=== PATIENT | male | born 1970 | race Caucasian/White ===

== ENCOUNTER 2021-01-15 08:48 | Emergency (ER) | payer MEDICARE, OTHER ==
[~2021-01-15] VITALS: Ht 188 cm; Wt 92.1 kg
[~2021-01-15 08:48] MED LIST: COLACE100 MG PO; ISENTRESS400 MG PO; LIPITOR20 MG PO; NORVIR100 M1 PO; PHENERGAN25 MG/1 M1 PO; REYATAZ300 MG PO; SEPTRA DS TABL1 EACH PO; SINGULAIR10 MG PO; TRAMADOL HCL50 MG PO; ULTRACET TABLE1 EACH PO; ZIAGEN300 MG PO
--- OUTSIDE RECORDS SUMMARY | 2021-01-15 08:50 | XMS ---
PreManage Notification: ROMANA ARTHUR Security Music Composer Events No recent Security Events currently on file CRITERIA MET - [facility] - 2 Visits in 30 Days CARE PROVIDERS GILLIAN PICHARDO Nurse Practitioner: 10/03/2005-Current PHONE: Unknown Idania Olivo Data Analyst Etl Developer/Motor Mechanic 01/01/2021-Current PHONE: [phone] SUZANNE ESCOBAR Data Analyst Etl Developer/Motor Mechanic Current PHONE: [phone] Bibi has no Care Guidelines for this patient. E.D. VISIT COUNT ([address] [facility] 1 [facility] TOTAL 2 NOTE: Visits indicate total known visits. ED/UCC VISIT TRACKING (12 MO.) 01/15/2021 08:49 [facility] [place] TYPE: Emergency COMPLAINT: - LEFT LEG SKIN PROBLEM 12/17/2020 17:51 [facility] TYPE: Emergency COMPLAINT: - fever / lower back pain / DO NOT USE DIAGNOSES: - fever / lower back pain - fever / lower back pain / DO NOT USE INPATIENT VISIT TRACKING (12 MO.) No inpatient visits to display in this time frame [email or web address]
[2021-01-15] MEDS ORDERED: LIPITOR10 MG PO (09:08)
[2021-01-15] MEDS ORDERED: BACTRIM DS TAB1 EACH PO (09:43)
== END 2021-01-15 09:52 | disposition home or self-care (01) ==
LOC: ED 08:48
DX: L02.416 Cutaneous abscess of left lower limb (principal); Z88.5 Allergy status to narcotic agent; Z88.8 Allergy status to other drugs, medicaments and biological substances; Z88.0 Allergy status to penicillin; Z79.899 Other long term (current) drug therapy
CPT/HCPCS: 10060; 99283-25

== ENCOUNTER 2021-03-16 15:25 | Emergency (ER) | payer MEDICARE, OTHER ==
[~2021-03-16] VITALS: Ht 188 cm; Wt 92.1 kg
[~2021-03-16 15:25] MED LIST changes: +BACTRIM DS TAB1 EACH PO; +LIPITOR10 MG PO
[2021-03-16] MEDS ORDERED: ISENTRESS400 MG PO (16:39)
[2021-03-16] MEDS ORDERED: PREDNISONE20 MG PO (19:57)
[2021-03-17] MEDS ORDERED: DICLOFENAC SODI75 MG PO (21:55)
== END 2021-03-16 20:05 | disposition home or self-care (01) ==
LOC: ED 15:25
DX: M54.12 Radiculopathy, cervical region (principal); B20 Human immunodeficiency virus [HIV] disease; Z88.5 Allergy status to narcotic agent; Z88.8 Allergy status to other drugs, medicaments and biological substances; Z88.0 Allergy status to penicillin; Z79.899 Other long term (current) drug therapy
CPT/HCPCS: 80048; 83735; 85025; 85379; 99283; J1100

== ENCOUNTER 2021-03-17 20:13 | Emergency (ER) | payer MEDICARE, OTHER ==
[~2021-03-17] VITALS: Ht 188 cm; Wt 92.1 kg
[~2021-03-17 20:13] MED LIST changes: +PREDNISONE20 MG PO
--- OUTSIDE RECORDS SUMMARY | 2021-03-17 20:16 | XMS ---
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 Fannie VISIT COUNT ([address] [facility] 3 [facility] Khan TOTAL 4 NOTE: Visits indicate total known visits. ED/UCC VISIT TRACKING (12 MO.) 03/17/2021 20:14 [facility] [place] TYPE: Emergency COMPLAINT: - MED REACTION 03/16/2021 15:26 [facility] TYPE: Emergency COMPLAINT: - R SHOULDER PAIN 01/15/2021 08:49 [facility] TYPE: Emergency COMPLAINT: - LEFT LEG SKIN PROBLEM DIAGNOSES: - Allergy status to other drugs, medicaments and biological substances - Allergy status to narcotic agent - Other local intermodal truck driver (current) drug therapy - Allergy status to penicillin - Cutaneous abscess of left lower limb 12/17/2020 17:51 [facility] TYPE: Emergency COMPLAINT: - fever / lower back pain / DO NOT USE DIAGNOSES: - fever / lower back pain - fever / lower back pain / DO NOT USE INPATIENT VISIT TRACKING (12 MO.) No inpatient visits to display in this time frame [email or web address]
[2021-03-17] MEDS ORDERED: DICLOFENAC SODI75 MG PO (21:55)
== END 2021-03-17 22:13 | disposition home or self-care (01) ==
LOC: ED 20:13
DX: R42 Dizziness and giddiness (principal); R11.0 Nausea; R06.6 Hiccough; T38.0X5A Adverse effect of glucocorticoids and synthetic analogues, initial encounter; M25.511 Pain in right shoulder; B20 Human immunodeficiency virus [HIV] disease; Z88.5 Allergy status to narcotic agent; Z88.8 Allergy status to other drugs, medicaments and biological substances; Z88.0 Allergy status to penicillin; Z79.899 Other long term (current) drug therapy; Z79.52 Long term (current) use of systemic steroids
CPT/HCPCS: 99283

== ENCOUNTER 2021-06-10 20:09 | Emergency (ER) | payer MEDICARE, OTHER ==
[~2021-06-10] VITALS: Ht 188 cm; Wt 94.3 kg
[~2021-06-10 20:09] MED LIST changes: +DICLOFENAC SODI75 MG PO
== END 2021-06-11 05:06 | disposition short-term general hospital (02) ==
LOC: ED 20:09
DX: K80.50 Calculus of bile duct without cholangitis or cholecystitis without obstruction (principal); B20 Human immunodeficiency virus [HIV] disease; Z88.5 Allergy status to narcotic agent; Z88.8 Allergy status to other drugs, medicaments and biological substances; Z88.0 Allergy status to penicillin; Z79.899 Other long term (current) drug therapy; Z20.822 Contact with and (suspected) exposure to COVID-19
CPT/HCPCS: 74177; 80053; 81001; 83690; 85025; 99285-25; C9803; J2405; J3480; J7030; Q9967; U0003

== ENCOUNTER 2025-05-07 19:18 | Emergency (ER) | payer MEDICARE, OTHER ==
[~2025-05-07] VITALS: Ht 188 cm; Wt 91.2 kg
[~2025-05-07 19:18] MED LIST changes: -LIPITOR20 MG PO
[2025-05-07] MEDS ORDERED: ondansetron HCL 4 MG/2 ML VIAL IV ONE (19:45)
[2025-05-07] MEDS ORDERED: KETOROLAC TROMETHAMINE 30 MG/ML VIAL IV ONE (19:45)
[2025-05-07] MEDS ORDERED: SODIUM CHLORIDE 0.9% 1,000 ML IV ONE (19:45)
[2025-05-07 20:00] LABS: BASOPHILS 0.2 % (0.2-1.2); EOSINOPHILS 1.2 % (0.8-7.0); HEMATOCRIT 51.3 % (40.1-51.0); LYMPHOCYTES 5.1 % (21.8-53.1); MCH 31.4 PG (25.7-32.2); MCHC 35.1 g/dL (32.3-36.5); MCV 89.5 fL (79.0-92.2); MONOCYTES 6.7 % (5.3-12.2); NEUTROPHILS 86.2 % (34.0-67.9); PLATELET COUNT 209 K/uL (163-337); RBC 5.73 M/uL (4.63-6.08)
[2025-05-07 20:16] LABS: ALBUMIN 3.4 g/dL (3.4-5.0); ALBUMIN/GLOBULIN RATIO 0.87 (1.1-2.4); ANION GAP 16.8 (7-21); BILIRUBIN, TOTAL 2.7 mg/dL (0.2-1.0); BUN/CREATININE RATIO 31.37 (6.0-28.6); CALCIUM 8.6 mg/dL (8.5-10.1); CREATININE, SERUM 1.02 mg/dL (0.70-1.30); MAGNESIUM 1.9 mg/dL (1.8-2.4); POTASSIUM 3.8 mmol/L (3.5-5.1); PROTEIN, TOTAL 7.3 g/dL (6.4-8.2)
[2025-05-07] MEDS ORDERED: MORPHINE SULFATE 4 MG/ML VIAL IV ONE (21:15)
[2025-05-07 21:34] LABS: BILIRUBIN, URINE NEGATIVE (negative); BLOOD/HGB, URINE NEGATIVE (Negative); KETONE, URINE NEGATIVE (Negative); LEUK ESTERASE, URINE NEGATIVE (negative); NITRITE, URINE NEGATIVE (negative); PH, URINE 5.5 (5-7)
[2025-05-07] MEDS ORDERED: CYCLOBENZAPRINE10 MG PO (22:19)
[2025-05-07] MEDS ORDERED: ONDANSETRON ODT8 MG PO (22:19)
[2025-05-07] MEDS ORDERED: PROMETHAZINE HC25 M1 PO (22:19)
[2025-05-07] MEDS ORDERED: ONDANSETRON 4 MG HOME.PACK SL ONE (22:30)
[2025-05-07] MEDS ORDERED: PROMETHAZINE HCL 25 MG HOME.PACK PO ONE (22:30)
[2025-05-07] MEDS ORDERED: CYCLOBENZAPRINE HCL 10 MG HOME.PACK PO ONE (22:30)
[2025-05-07 23:02] VITALS: BP 101/62
== END 2025-05-07 23:02 | disposition home or self-care (01) ==
LOC: ED 19:18
PROVIDERS: Family Medicine
DX: K52.9 Noninfective gastroenteritis and colitis, unspecified (principal); Z79.899 Other long term (current) drug therapy; Z88.5 Allergy status to narcotic agent; Z88.0 Allergy status to penicillin
CPT/HCPCS: 36415; 74018; 80053; 81003; 83690; 83735; 85025; 96361; 96374; 96375; 99284-25; A9270; J1885; J2405; J7030; U0002

== ENCOUNTER 2025-10-06 20:00 | Emergency (ER) | payer MEDICARE, OTHER ==
[~2025-10-06] VITALS: Ht 188 cm; Wt 91.2 kg
[~2025-10-06 20:00] MED LIST changes: +CYCLOBENZAPRINE10 MG PO; +ONDANSETRON ODT8 MG PO; +PROMETHAZINE HC25 M1 PO
[2025-10-06] MEDS ORDERED: OXYMETAZOLINE HCL 30 ML BTL NAS ONE (21:30)
[2025-10-06 22:34] VITALS: BP 123/84
== END 2025-10-06 22:35 | disposition home or self-care (01) ==
LOC: ED 20:00
DX: R04.0 Epistaxis (principal); Z79.899 Other long term (current) drug therapy; Z88.5 Allergy status to narcotic agent; Z88.0 Allergy status to penicillin
CPT/HCPCS: 99283